=== PATIENT | female | born 1995 | race Caucasian/White ===

== ENCOUNTER 2021-12-27 09:10 | Emergency (ER) | payer MEDICAID ==
[~2021-12-27] VITALS: Ht 160 cm; Wt 125.5 kg
[2021-12-27 09:30] VITALS: TEMP 98.5
[2021-12-27 09:51] LABS: COLLECTION METHOD CLEAN CATCH
[2021-12-27 10:06] LABS: MUCOUS Present (NOT PRESENT); URINE BACTERIA Rare /hpf (NONE SEEN); URINE RBC 20-50 /hpf (0-2)
[2021-12-27 10:08] LABS: PH 6 (5-8); URINE APPEARANCE Clear (CLEAR/HAZY); URINE PROTEIN(semi-quant) 2+ (NEGATIVE)
[2021-12-27 10:09] LABS: URINE BLOOD 2+ (NEGATIVE); URINE KETONE Negative (NEGATIVE); URINE LEUKOCYTE ESTERASE 2+ (NEGATIVE); URINE NITRATE Positive (NEGATIVE)
[2021-12-27 10:10] LABS: URINE BILIRUBIN Negative (NEGATIVE)
[2021-12-27 10:11] LABS: URINE GLUCOSE Negative (NEGATIVE)
[2021-12-27 10:11] LABS: BASO # 0.1 K/mm3 (0.0-0.2); BASO % 0.6 % (0.0-2.0); EOS # 0.1 K/mm3 (0.0-0.7); EOS % 1.3 % (0.0-4.0); GRAN # 6.2 K/mm3 (1.4-6.5); HEMATOCRIT 44.7 % (37.0-47.0); LYMPH # 1.9 K/mm3 (1.2-3.4); LYMPH % 21.2 % (20.0-51.0); MEAN CELL VOLUME 97 fl (80.0-100.0); MEAN CORPUSCULAR HEMOGLOBIN 32 pg (27-31); MEAN CORPUSCULAR HGB CONC 34 g/dl (33.0-37.0); MEAN PLATELET VOLUME 11.7 fl (7.4-10.4); MONO # 0.6 K/mm3 (0.1-0.6); MONO % 6.6 % (1.7-9.3); PLATELET COUNT 213 K/mm3 (130-400); RED BLOOD COUNT 4.63 M/mm3 (4.10-5.30); REDCELL DISTRIBUTION WIDTH-CV 12.8 % (11.5-14.5)
[2021-12-27 10:13] LABS: URINE UROBILINOGEN >=4.0 (NEGATIVE)
[2021-12-27 10:18] LABS: URINE COLOR OTHER (YELLOW)
[2021-12-27 10:31] LABS: ALBUMIN 3.7 gm/dL (3.5-5.0); BILIRUBIN,TOTAL 0.3 mg/dL (0.2-1.2); C-REACTIVE PROTEIN 0.44 mg/dL (0.00-0.50); CALCIUM 8.6 mg/dL (8.4-10.2); CREATININE, serum 0.74 mg/dL (0.57-1.11); TOTAL PROTEIN 6.6 gm/dL (6.2-8.1)
[2021-12-27] MEDS ORDERED: NORCO 325 MG-51 TAB PO (11:24)
[2021-12-27 11:37] VITALS: BP 151/96; PULSE 64
== END 2021-12-27 11:48 | disposition home or self-care (01) ==
LOC: COL.ER 09:10
PROVIDERS: Family Medicine
DX: N13.2 Hydronephrosis with renal and ureteral calculous obstruction (principal); Z87.891 Personal history of nicotine dependence
CPT/HCPCS: J2405; J7120; Q9967

== ENCOUNTER 2022-02-07 08:17 | Emergency (ER) | payer MEDICAID ==
[~2022-02-07] VITALS: Ht 160 cm; Wt 125.9 kg
[~2022-02-07 08:17] MED LIST: NORCO 325 MG-51 TAB PO
[2022-02-07 08:22] VITALS: BP 94/57; TEMP 97.8
[2022-02-07] MEDS ORDERED: MYCELEX10 MG/TAB MM (08:49)
[2022-02-07 08:57] VITALS: PULSE 91
== END 2022-02-07 08:57 | disposition home or self-care (01) ==
LOC: COL.ER 08:17
DX: B37.0 Candidal stomatitis (principal); F17.210 Nicotine dependence, cigarettes, uncomplicated

== ENCOUNTER 2022-04-17 07:14 | Emergency (ER) | payer MEDICAID ==
[~2022-04-17] VITALS: Ht 160 cm; Wt 127.3 kg
[~2022-04-17 07:14] MED LIST changes: +AMOXICILLIN 50500 MG PO; +MYCELEX10 MG/TAB MM
[2022-04-17 07:20] VITALS: BP 114/77; TEMP 98.1
[2022-04-17] MEDS ORDERED: CIPRODEX OT (07:44)
[2022-04-17] MEDS ORDERED: NORCO 325 MG-51 TAB PO (07:44)
[2022-04-17 07:55] VITALS: PULSE 74
== END 2022-04-17 07:57 | disposition home or self-care (01) ==
LOC: COL.ER 07:14
DX: H60.91 Unspecified otitis externa, right ear (principal); Z28.310 Unvaccinated for COVID-19

== ENCOUNTER 2022-07-12 07:12 | Emergency (ER) | payer OTHER, MEDICAID ==
[~2022-07-12] VITALS: Ht 160 cm; Wt 123.6 kg
[~2022-07-12 07:12] MED LIST changes: +CIPRODEX OT
[2022-07-12 07:21] VITALS: TEMP 98.5
[2022-07-12 09:02] VITALS: BP 122/72; PULSE 56
== END 2022-07-12 09:12 | disposition home or self-care (01) ==
LOC: COL.ER 07:12
DX: U07.1 COVID-19 (principal); Z28.310 Unvaccinated for COVID-19
CPT/HCPCS: J1200; J2405; J2765; J7120

== ENCOUNTER 2022-09-03 02:15 | Observation (INO) | payer OTHER, MEDICAID ==
[~2022-09-03] VITALS: Ht 160 cm; Wt 130.2 kg
[2022-09-03 02:53] LABS: COLLECTION METHOD CLEAN CATCH
[2022-09-03 03:07] LABS: BASO # 0.1 K/mm3 (0.0-0.2); BASO % 0.5 % (0.0-2.0); EOS # 0.1 K/mm3 (0.0-0.7); EOS % 1.2 % (0.0-4.0); GRAN # 7.7 K/mm3 (1.4-6.5); HEMOGLOBIN 14.2 g/dl (12.5-16.0); LYMPH % 19.3 % (20.0-51.0); MEAN CELL VOLUME 96 fl (80.0-100.0); MEAN CORPUSCULAR HEMOGLOBIN 32 pg (27-31); MEAN CORPUSCULAR HGB CONC 33 g/dl (33.0-37.0); MONO # 0.6 K/mm3 (0.1-0.6); MONO % 5.8 % (1.7-9.3); PLATELET COUNT 247 K/mm3 (130-400); RED BLOOD COUNT 4.49 M/mm3 (4.10-5.30); REDCELL DISTRIBUTION WIDTH-CV 12.8 % (11.5-14.5)
[2022-09-03 03:15] LABS: ALBUMIN 3.4 gm/dL (3.5-5.0); BILIRUBIN,TOTAL 0.4 mg/dL (0.2-1.2); CALCIUM 8.5 mg/dL (8.4-10.2); CREATININE, serum 1.09 mg/dL (0.57-1.11); TOTAL PROTEIN 6.4 gm/dL (6.2-8.1)
[2022-09-03 03:17] LABS: MUCOUS Present (NOT PRESENT); SQUAMOUS EPITHELIAL 20-50 /hpf (0-10); URINE BACTERIA Moderate /hpf (NONE SEEN); URINE RBC >50 /hpf (0-2)
[2022-09-03 03:18] LABS: PH 5.5 (5.0-8.5); URINE APPEARANCE Cloudy (CLEAR/HAZY); URINE COLOR Yellow (YELLOW); URINE GLUCOSE Negative (NEGATIVE); URINE PROTEIN(semi-quant) 1+ (NEGATIVE)
[2022-09-03 03:19] LABS: URINE BLOOD 3+ (NEGATIVE); URINE KETONE TRACE (NEGATIVE); URINE NITRATE Negative (NEGATIVE); URINE UROBILINOGEN 0.2 E.U/dL (0.2-1.0)
--- NOTE | 2022-09-03 06:39 | NUR ---
Patient arrived to the floor at 0530 from the emergency room, INT to RAC, A/O x 4, VSS, head to toe assessment done, denies the need for pain medicine at this time, call light and personal items within reach.
[2022-09-03 07:27] VITALS: BP 120/77; PULSE 62; TEMP 98.5
--- NOTE | 2022-09-03 09:02 | NUR ---
Patient awake and in bed. Alert and oriented IVF infusing on righ A/C. Patient report mild discomfort at the RLQ. Patient rated pain level at 5/10. Patient denies pain med at this time.
--- NOTE | 2022-09-03 10:42 | NUR ---
Initial visit; Patient thanked Search Advertising Strategist for stopping by and visiting with her about her health issues. Patient requested prayer that the stones drop so that she doesn't reqire surgery. Search Advertising Strategist will continue the prayer also praying for healing.
--- NOTE | 2022-09-03 10:42 | NUR ---
Initial visit; Patient thanked Pantomimist for stopping by and visiting with her about her health issues. Patient requested prayer that the stones drop so that she doesn't reqire surgery. Pantomimist will continue the prayer also praying for healing.
[2022-09-03] MEDS ORDERED: NORCO 325 MG-51 TAB PO (15:13)
[2022-09-03] MEDS ORDERED: FLOMAX 0.40.4 MG/CAP PO (15:14)
== END 2022-09-03 16:30 | disposition home or self-care (01) ==
LOC: COL.ER 02:15 → SURG 03:57
PROVIDERS: Emergency Medicine; ADMIT Urology
DX: N13.2 Hydronephrosis with renal and ureteral calculous obstruction (principal); N39.0 Urinary tract infection, site not specified; F17.210 Nicotine dependence, cigarettes, uncomplicated; Z28.310 Unvaccinated for COVID-19; Z28.9 Immunization not carried out for unspecified reason
CPT/HCPCS: G0378; J0696; J1885; J2270; J2405; J7030

== ENCOUNTER 2022-09-10 12:42 | Emergency (ER) | payer OTHER, MEDICAID ==
[~2022-09-10] VITALS: Ht 160 cm; Wt 127.3 kg
[~2022-09-10 12:42] MED LIST changes: +FLOMAX 0.40.4 MG/CAP PO
[2022-09-10 12:58] VITALS: TEMP 98.2
[2022-09-10 13:30] LABS: COLLECTION METHOD CLEAN CATCH
[2022-09-10 13:38] LABS: BASO % 0.4 % (0.0-2.0); EOS # 0.1 K/mm3 (0.0-0.7); EOS % 1.1 % (0.0-4.0); GRAN # 6.5 K/mm3 (1.4-6.5); GRAN % 72.4 % (42.2-75.2); HEMATOCRIT 43.8 % (37.0-47.0); HEMOGLOBIN 14.5 g/dl (12.5-16.0); LYMPH # 1.9 K/mm3 (1.2-3.4); MEAN CELL VOLUME 95 fl (80.0-100.0); MEAN CORPUSCULAR HEMOGLOBIN 31 pg (27-31); MEAN CORPUSCULAR HGB CONC 33 g/dl (33.0-37.0); MEAN PLATELET VOLUME 10.9 fl (7.4-10.4); MONO # 0.4 K/mm3 (0.1-0.6); MONO % 4.9 % (1.7-9.3); PLATELET COUNT 269 K/mm3 (130-400); RED BLOOD COUNT 4.63 M/mm3 (4.10-5.30); REDCELL DISTRIBUTION WIDTH-CV 12.4 % (11.5-14.5)
[2022-09-10 13:50] LABS: ALBUMIN 3.8 gm/dL (3.5-5.0); BILIRUBIN,TOTAL 0.4 mg/dL (0.2-1.2); C-REACTIVE PROTEIN 0.74 mg/dL (0.00-0.50); CALCIUM 9.1 mg/dL (8.4-10.2); CREATININE, serum 0.86 mg/dL (0.57-1.11); POTASSIUM 4.3 mmol/L (3.5-4.5); TOTAL PROTEIN 7.3 gm/dL (6.2-8.1)
[2022-09-10 13:52] LABS: MUCOUS Present (NOT PRESENT); URINE BACTERIA None Seen /hpf (NONE SEEN)
[2022-09-10 13:55] LABS: URINE APPEARANCE Clear (CLEAR/HAZY); URINE BLOOD TRACE-INTACT (NEGATIVE); URINE COLOR Yellow (YELLOW); URINE GLUCOSE Negative (NEGATIVE); URINE KETONE Negative (NEGATIVE); URINE NITRATE Negative (NEGATIVE); URINE PROTEIN(semi-quant) Negative (NEGATIVE); URINE UROBILINOGEN 0.2 E.U/dL (0.2-1.0)
[2022-09-10] MEDS ORDERED: NORCO 325 MG-51 TAB PO (14:57)
[2022-09-10] MEDS ORDERED: ZOFRAN ODT4 MG PO (14:57)
[2022-09-10 15:04] VITALS: BP 122/72; PULSE 61
== END 2022-09-10 15:15 | disposition home or self-care (01) ==
LOC: COL.ER 12:42
PROVIDERS: Physician Assistant
DX: N23 Unspecified renal colic (principal); Z87.442 Personal history of urinary calculi; Z32.02 Encounter for pregnancy test, result negative; Z28.310 Unvaccinated for COVID-19
CPT/HCPCS: J1885; J2405; J7030

== ENCOUNTER 2023-01-10 15:11 | Observation (INO) | payer OTHER, MEDICAID ==
[~2023-01-10] VITALS: Ht 160 cm; Wt 125.9 kg
[~2023-01-10 15:11] MED LIST changes: +ZOFRAN ODT4 MG PO
[2023-01-10 15:53] LABS: COLLECTION METHOD CLEAN CATCH
[2023-01-10 15:57] LABS: BASO % 0.2 % (0.0-2.0); GRAN # 11.3 K/mm3 (1.4-6.5); GRAN % 86.3 % (42.2-75.2); HEMATOCRIT 44.1 % (37.0-47.0); HEMOGLOBIN 14.7 g/dl (12.5-16.0); LYMPH % 7.7 % (20.0-51.0); MEAN CELL VOLUME 94 fl (80.0-100.0); MEAN CORPUSCULAR HEMOGLOBIN 32 pg (27-31); MEAN CORPUSCULAR HGB CONC 33 g/dl (33.0-37.0); MEAN PLATELET VOLUME 11.8 fl (7.4-10.4); MONO # 0.7 K/mm3 (0.1-0.6); MONO % 5.5 % (1.7-9.3); PLATELET COUNT 186 K/mm3 (130-400); RED BLOOD COUNT 4.67 M/mm3 (4.10-5.30); REDCELL DISTRIBUTION WIDTH-CV 12.8 % (11.5-14.5)
[2023-01-10 16:06] LABS: URINE BACTERIA Rare /hpf (NONE SEEN); URINE RBC >50 /hpf (0-2)
[2023-01-10 16:07] LABS: PH 7.5 (5-8); URINE APPEARANCE Cloudy (CLEAR/HAZY); URINE COLOR Yellow (YELLOW); URINE GLUCOSE Negative (NEGATIVE); URINE KETONE 3+ (NEGATIVE); URINE NITRATE Negative (NEGATIVE); URINE PROTEIN(semi-quant) 3+ (NEGATIVE); URINE UROBILINOGEN 0.2 (NEGATIVE)
[2023-01-10 16:08] LABS: URINE BLOOD 2+ (NEGATIVE)
[2023-01-10 16:17] LABS: ALBUMIN 3.6 gm/dL (3.5-5.0); BILIRUBIN,TOTAL 0.6 mg/dL (0.2-1.2); CALCIUM 9.2 mg/dL (8.4-10.2); CREATININE, serum 0.97 mg/dL (0.57-1.11); POTASSIUM 3.9 mmol/L (3.5-4.5)
[2023-01-10] MEDS ORDERED: FOLIC ACID 40400 MCG (17:03)
[2023-01-10 19:35] VITALS: BP 117/58; PULSE 74; TEMP 98
[2023-01-10 19:50] VITALS: BP 109/57; PULSE 73
[2023-01-10 20:20] VITALS: BP 109/46; PULSE 66; TEMP 98.2
[2023-01-10 20:50] VITALS: BP 111/59; PULSE 61
[2023-01-10 21:50] VITALS: BP 110/57; PULSE 57
--- NOTE | 2023-01-10 21:52 | NUR ---
PATIENT UP TO ROOM 328 AT 1905. ALERT AND ORIENTED. AMBULATED TO BED FROM STRETCHER IN HALLWAY. DENIES PAIN. AMBULATED TO BATHROOM AND VOIDED. IVF STARTED TO L AC IV. WEANED OFF OF O2. DENIES ADDITIONAL NEEDS. CALL LIGHT IN REACH.
[2023-01-10 22:50] VITALS: BP 116/51; PULSE 63
[2023-01-11 04:48] VITALS: BP 119/50; PULSE 72; TEMP 97.5
[2023-01-11 07:48] VITALS: BP 116/48; PULSE 63; TEMP 98.2
[2023-01-11] MEDS ORDERED: FLOMAX 0.40.4 MG/CAP PO (09:39)
[2023-01-11] MEDS ORDERED: NORCO 325 MG-51 TAB PO (09:39)
[2023-01-11] MEDS ORDERED: OMNICEF 300MG300 MG PO (09:40)
--- NOTE | 2023-01-11 10:30 | NUR ---
Patient awake in bed alert and oriented. INT intact. Bowel sound active. Patient states she's been up to the bathroom to void with no difficulty. Patient has no needs or pain at this time.
== END 2023-01-11 10:50 | disposition home or self-care (01) ==
LOC: COL.ER 15:11 → SDCO 16:48 → COL.ER 16:48 → SURG 17:45 → SDCO 17:45 → INPTSU 17:45 → SURG 18:29 → SDCO 01-11 10:50 → SURG 01-11 10:50
PROVIDERS: Emergency Medicine; ADMIT Urology
DX: N20.2 Calculus of kidney with calculus of ureter (principal); N39.0 Urinary tract infection, site not specified; A41.9 Sepsis, unspecified organism; F17.200 Nicotine dependence, unspecified, uncomplicated
CPT/HCPCS: OP; C1769; C2617; J0690; J0696; J1100; J1885; J2405; J2704; J3010; J7030; Q9967

== ENCOUNTER 2023-01-21 10:51 | Day surgery (SDC) | payer OTHER, MEDICAID ==
[~2023-01-21] VITALS: Ht 160 cm; Wt 124.0 kg
[~2023-01-21 10:51] MED LIST changes: +FOLIC ACID 40400 MCG; +OMNICEF 300MG300 MG PO
[2023-01-21] MEDS ORDERED: ROXICODONE 55 MG/TAB PO (13:35)
[2023-01-21] MEDS ORDERED: FLOMAX 0.40.4 MG/CAP PO (13:35)
[2023-01-21 14:15] VITALS: BP 136/82; PULSE 64; TEMP 97.2
[2023-01-21 14:30] VITALS: BP 123/69; PULSE 64
[2023-01-21 14:45] VITALS: BP 116/80; PULSE 74
[2023-01-21 15:00] VITALS: BP 112/70; PULSE 64
--- NOTE | 2023-01-21 15:15 | NUR ---
1415 RETURNS TO ROOM 6 PER CART. AWAKE, ALERT. RESP UNLABORED. HOB ELEVATED 30 DEGREES, VITAL SIGNS OBTAINED. DENIES PAIN. CALL LIGHT AT SIDE. SIGNIFICANT OTHER IN ROOM. 1430 TOLERATES PO JUICE WITHOUT NAUSEA. 1445 AMBULATES TO BATHROOM WITH STANDBY ASSIST. REPORTS VOIDED WITHOUT DIFFICULTY. URINE LIGHT RED. 1458 DISCHARGE INSTRUCTIONS REVIEWED. PATIENT VERBALIZES UNDERSTANDING. COPY PROVIDED IN DISCHARGE FOLDER. 1510 DRESSES SELF AFTER AMBULATING TO BATHROOM. REPORTS AGAIN, VOIDS WITHOUT DIFFICULTY
[2023-01-21 15:44] VITALS: BP 121/62; PULSE 63; TEMP 97.8
== END 2023-01-21 15:18 | disposition home or self-care (01) ==
LOC: SDCO 10:51
DX: N20.2 Calculus of kidney with calculus of ureter (principal); F17.210 Nicotine dependence, cigarettes, uncomplicated; Z28.310 Unvaccinated for COVID-19; Z87.440 Personal history of urinary (tract) infections; Z28.9 Immunization not carried out for unspecified reason
CPT/HCPCS: C1769; C2617; J0690; J1100; J1885; J2405; J2704; J3010; J7120

== ENCOUNTER 2023-11-24 14:48 | Emergency (ER) | payer OTHER ==
[~2023-11-24] VITALS: Ht 243.8 cm; Wt 125.0 kg
[~2023-11-24 14:48] MED LIST changes: +BACTRIM DS 8001 TAB PO; +CEFTIN500 MG PO; +CEPHALEXIN500 M1 PO; +DIFLUCAN 100MG100 MG PO; +PERCOCET 325 MG1 TA2 PO; +ROXICODONE 55 MG/TAB PO
[2023-11-24 14:53] VITALS: BP 137/79; TEMP 98.6
[2023-11-24] MEDS ORDERED: ZOFRAN ODT4 MG PO (15:28)
[2023-11-24] MEDS ORDERED: NORCO 325 MG-51 TAB PO (15:28)
[2023-11-24 16:16] VITALS: PULSE 88
== END 2023-11-24 16:16 | disposition home or self-care (01) ==
LOC: COL.ER 14:48
DX: N23 Unspecified renal colic (principal); F17.210 Nicotine dependence, cigarettes, uncomplicated; Z87.440 Personal history of urinary (tract) infections; Z98.890 Other specified postprocedural states; Z96.0 Presence of urogenital implants
CPT/HCPCS: J1170; J1885

== ENCOUNTER 2024-01-13 00:39 | Emergency (ER) | payer OTHER ==
[~2024-01-13] VITALS: Ht 160 cm; Wt 115.9 kg
[2024-01-13 00:47] VITALS: TEMP 97.5
[2024-01-13] MEDS ORDERED: NS 1,000 ML IV ONE ×2 (01:00→03:45)
[2024-01-13] MEDS ORDERED: Ondansetron 4 MG/2 ML VIAL IV ONE (01:00)
[2024-01-13] MEDS ORDERED: Morphine 4 MG/ML VIAL IV ONE (01:00)
[2024-01-13 01:52] LABS: BASO # 0.1 K/mm3 (0.0-0.2); BASO % 0.4 % (0.0-2.0); EOS # 0.2 K/mm3 (0.0-0.7); EOS % 1.2 % (0.0-4.0); GRAN # 13.8 K/mm3 (1.4-6.5); GRAN % 81.7 % (42.2-75.2); HEMATOCRIT 36.2 % (37.0-47.0); HEMOGLOBIN 11.3 g/dl (12.5-16.0); LYMPH % 11.8 % (20.0-51.0); MEAN CELL VOLUME 89 fl (80.0-100.0); MEAN CORPUSCULAR HEMOGLOBIN 28 pg (27-31); MEAN CORPUSCULAR HGB CONC 31 g/dl (33.0-37.0); MEAN PLATELET VOLUME 9.9 fl (7.4-10.4); MONO # 0.7 K/mm3 (0.1-0.6); PLATELET COUNT 428 K/mm3 (130-400); RED BLOOD COUNT 4.08 M/mm3 (4.10-5.30); REDCELL DISTRIBUTION WIDTH-CV 15.5 % (11.5-14.5)
[2024-01-13 02:10] LABS: ALBUMIN 2.8 gm/dL (3.5-5.0); BILIRUBIN,TOTAL 0.2 mg/dL (0.2-1.2); C-REACTIVE PROTEIN 5.07 mg/dL (0.00-0.50); CALCIUM 10.1 mg/dL (8.4-10.2); CREATININE, serum 1.45 mg/dL (0.57-1.11)
[2024-01-13] MEDS ORDERED: Iohexol 300 - 100 ML VIAL IV ONE (02:55)
[2024-01-13] MEDS ORDERED: NS 50 ML IV SCH (02:55)
[2024-01-13] MEDS ORDERED: HYDROmorphone 0.5 MG/0.5 ML SYRINGE IV ONE (03:30)
[2024-01-13] MEDS ORDERED: Ketorolac 30 MG/ML VIAL IV ONE (03:45)
[2024-01-13 04:57] LABS: COLLECTION METHOD CLEAN CATCH
[2024-01-13 05:05] LABS: URINE APPEARANCE CLEAR (CLEAR/HAZY); URINE BLOOD 3+ (NEGATIVE); URINE COLOR YELLOW (YELLOW); URINE GLUCOSE NEGATIVE (NEGATIVE); URINE KETONE NEGATIVE (NEGATIVE); URINE NITRATE NEGATIVE (NEGATIVE); URINE PROTEIN(semi-quant) 1+ (NEGATIVE); URINE UROBILINOGEN 0.2 E.U/dL (0.2-1.0)
[2024-01-13] MEDS ORDERED: FLOMAX 0.40.4 MG/CAP PO (05:11)
[2024-01-13] MEDS ORDERED: ULTRAM 50MG TAB50 MG PO (05:11)
[2024-01-13 05:21] VITALS: BP 138/82; PULSE 56
== END 2024-01-13 05:21 | disposition home or self-care (01) ==
LOC: COL.ER 00:39
PROVIDERS: Nurse Practitioner
DX: N13.2 Hydronephrosis with renal and ureteral calculous obstruction (principal); E86.0 Dehydration; Z98.890 Other specified postprocedural states; Z96.0 Presence of urogenital implants
CPT/HCPCS: J1170; J1885; J2270; J2405; J7030; Q9967

== ENCOUNTER 2024-06-03 19:01 | Emergency (ER) | payer OTHER ==
[~2024-06-03] VITALS: Ht 160 cm; Wt 120.5 kg
[~2024-06-03 19:01] MED LIST changes: +ULTRAM 50MG TAB50 MG PO
[2024-06-03 19:07] VITALS: TEMP 98.4
[2024-06-03] MEDS ORDERED: LR 1,000 ML IV ONE (19:30)
[2024-06-03 19:42] LABS: BASO % 0.5 % (0.0-2.0); EOS # 0.1 K/mm3 (0.0-0.7); EOS % 1.1 % (0.0-4.0); GRAN # 5.7 K/mm3 (1.4-6.5); GRAN % 67.4 % (42.2-75.2); HEMATOCRIT 42.1 % (37.0-47.0); LYMPH # 2.2 K/mm3 (1.2-3.4); MEAN CELL VOLUME 93 fl (80.0-100.0); MEAN CORPUSCULAR HEMOGLOBIN 31 pg (27-31); MEAN CORPUSCULAR HGB CONC 33 g/dl (33.0-37.0); MEAN PLATELET VOLUME 11.7 fl (7.4-10.4); MONO # 0.4 K/mm3 (0.1-0.6); MONO % 4.8 % (1.7-9.3); PLATELET COUNT 208 K/mm3 (130-400); RED BLOOD COUNT 4.53 M/mm3 (4.10-5.30); REDCELL DISTRIBUTION WIDTH-CV 13.4 % (11.5-14.5)
[2024-06-03 19:58] LABS: ALBUMIN 3.5 g/dL (3.5-5.0); BILIRUBIN,TOTAL 0.4 mg/dL (0.2-1.2); CALCIUM 9.3 mg/dL (8.4-10.2); CREATININE, serum 1.15 mg/dL (0.57-1.11); POTASSIUM 3.9 mEq/L (3.5-4.5); TOTAL PROTEIN 6.7 g/dl (6.2-8.1)
[2024-06-03 20:11] LABS: COLLECTION METHOD CLEAN CATCH
[2024-06-03 20:18] LABS: URINE APPEARANCE CLOUDY (CLEAR/HAZY); URINE BLOOD TRACE (NEGATIVE); URINE COLOR YELLOW (YELLOW); URINE GLUCOSE NEGATIVE (NEGATIVE); URINE KETONE TRACE (NEGATIVE); URINE NITRATE NEGATIVE (NEGATIVE); URINE PROTEIN(semi-quant) 1+ (NEGATIVE)
[2024-06-03] MEDS ORDERED: AMOXICILLIN 8751 TAB PO (20:40)
[2024-06-03] MEDS ORDERED: Amoxicillin/Clavulanate K+ 875/125 MG TAB PO ONE (20:45)
[2024-06-03 21:15] VITALS: BP 110/74; PULSE 88
== END 2024-06-03 21:15 | disposition home or self-care (01) ==
LOC: COL.ER 19:01
PROVIDERS: Family Medicine
DX: O23.41 Unspecified infection of urinary tract in pregnancy, first trimester (principal); O26.891 Other specified pregnancy related conditions, first trimester; R55 Syncope and collapse; O99.331 Smoking (tobacco) complicating pregnancy, first trimester; F17.210 Nicotine dependence, cigarettes, uncomplicated; Z87.442 Personal history of urinary calculi; Z3A.01 Less than 8 weeks gestation of pregnancy
CPT/HCPCS: J7120